=== PATIENT | male | born 1995 | race American Indian/Alaskan Native ===

== ENCOUNTER 2021-01-13 02:32 | Emergency (ER) | payer OTHER, SELFPAY ==
--- NOTE | 2021-01-13 03:03 | Event Note ---
ED Screening Note Date of service: 01/13/21 Time: 03:03 ED Screening Note: Patient complains of auditory hallucinations History of schizophrenia Denies SI/HI This initial assessment/diagnostic orders/clinical plan/treatment(s) is/are subject to change based on patients health status, clinical progression and re- assessment by fellow clinical providers in the ED. Further treatment and workup at subsequent clinical providers discretion. Patient/guardian urged not to elope from the ED as their condition may be serious if not clinically assessed and managed. Initial orders include: Labs Mental health evaluation
[2021-01-13 03:34] LABS: Bilirubin,Urine NEG (Negative); Blood,Urine NEG (Negative); Color,Urine Yellow (Yellow); Mucus,Urine FEW /HPF; Protein,Urine <15 mg/dL mg/dL (Negative); RBC,Urine < 1.0 /HPF (0.0-6.0); WBC,Urine < 1.0 /HPF (0.0-6.0)
[2021-01-13 03:41] LABS: Amphetamine Screen,Urine PRESUMPTIVE NEGATIVE; Benzodiazepines Screen,Urine PRESUMPTIVE NEGATIVE; Cannabinoid Screen,Urine PRESUMPTIVE POSITIVE; Cocaine Screen,Urine PRESUMPTIVE NEGATIVE; Methadone Screen,Urine PRESUMPTIVE NEGATIVE; Opiate Screen,Urine PRESUMPTIVE NEGATIVE
[2021-01-13 03:47] LABS: Basophils % (Auto) 0.3 % (0.0-1.8); Eosinophils # (Auto) 0.1 K/mm3 (0.0-0.4); Eosinophils % (Auto) 1.5 % (0.0-4.3); Hematocrit 48.4 % (35.5-45.6); Hemoglobin 16.9 gm/dl (11.8-15.2); Lymphocytes # (Auto) 2.7 K/mm3 (1.2-5.4); Lymphocytes % (Auto) 36.4 % (13.4-35.0); Mean Corpuscular HGB Conc 35 % (32-34); Mean Corpuscular Volume 96 fl (84-94); Monocytes # (Auto) 0.7 K/mm3 (0.0-0.8); Monocytes % (Auto) 9.6 % (0.0-7.3); Red Blood Count 5.06 M/mm3 (3.65-5.03); Red Cell Distribution Width 12.1 % (13.2-15.2)
[2021-01-13 04:02] LABS: Platelet Count 75 K/mm3 (140-440)
[2021-01-13 04:44] LABS: Alanine Aminotransferase 40 units/L (7-56); Albumin 4.6 g/dL (3.9-5); BUN/Creatinine Ratio 11; Blood Urea Nitrogen 11 mg/dL (9-20); Calcium 9.7 mg/dL (8.4-10.2); Hemolysis Index 28
--- NOTE | 2021-01-13 06:49 | Emergency Department Report ---
HPI - General Chief Complaint: Psych Time Seen by Provider: 01/13/21 03:01 - HPI HPI: 25-year-old -[place] male presents to the emergency department for a psychiatric evaluation secondary to auditory hallucinations. The patient has a history of schizophrenia for which he says he is compliant on 2 different medications. He is unable to describe the auditory hallucinations and essentially just sounds like some type of noise. They are not giving him any commands. He denies any visual hallucinations, suicidal or homicidal ideations. He denies any medical conditions. He denies any illicit drug use or alcohol abuse. Patient does say that he has a psychiatrist for outpatient follow-up but he has not seen them in "months." He has no physical complaints at this time. ED Past Medical Hx - Past Medical History Previous Medical History?: No - Social History Smoking Status: Current Every Day Smoker ED Review of Systems ROS: Stated complaint: MENTAL HEALTH Other details as noted in HPI Comment: All other systems reviewed and negative Constitutional: denies: chills, fever Respiratory: denies: cough, shortness of breath Cardiovascular: denies: chest pain, palpitations Gastrointestinal: denies: abdominal pain, vomiting Neurological: denies: headache, weakness Psychiatric: auditory hallucinations. denies: visual hallucinations, homicidal thoughts, suicidal thoughts Physical Exam - Physical Exam Vital Signs: Vital Signs 01/13/21 01/13/21 02:59 06:01 Temperature 98.8 F Pulse Rate 108 H Respiratory 20 20 Rate Blood Pressure 123/81 O2 Sat by Pulse 96 98 Oximetry Physical Exam: GENERAL: The patient is well-developed well-nourished. HENT: Normocephalic. Atraumatic. Patient has moist mucous membranes. EYES: Extraocular motions are intact. NECK: Supple. Trachea is midline. CHEST/LUNGS: Clear to auscultation. There is no respiratory distress noted. HEART/CARDIOVASCULAR: Regular. There is no tachycardia. There is no murmur. ABDOMEN: Abdomen is soft, nontender. Patient has normal bowel sounds. SKIN: Skin is warm and dry. NEURO: The patient is awake, alert, and oriented. The patient is cooperative. The patient has no focal neurologic deficits. Normal speech. MUSCULOSKELETAL: There is no tenderness or deformity. There is no limitation range of motion. ED Course Vital Signs 01/13/21 01/13/21 02:59 06:01 Temperature 98.8 F Pulse Rate 108 H Respiratory 20 20 Rate Blood Pressure 123/81 O2 Sat by Pulse 96 98 Oximetry ED Medical Decision Making - Lab Data Result diagrams: 01/13/21 03:25 01/13/21 03:25 Lab Results 01/13/21 01/13/21 01/13/21 Range/Units 03:25 03:25 03:25 WBC 7.3 (4.5-11.0) K/mm3 RBC 5.06 H (3.65-5.03) M/mm3 Hgb 16.9 H (11.8-15.2) gm/dl Hct 48.4 H (35.5-45.6) % MCV 96 H (84-94) fl MCH 33 H (28-32) pg MCHC 35 H (32-34) % RDW 12.1 L (13.2-15.2) % Plt Count 75 L (140-440) K/mm3 Lymph % (Auto) 36.4 H (13.4-35.0) % [place] % (Auto) 9.6 H (0.0-7.3) % Eos % (Auto) 1.5 (0.0-4.3) % Baso % (Auto) 0.3 (0.0-1.8) % Lymph # (Auto) 2.7 (1.2-5.4) K/mm3 [place] # (Auto) 0.7 (0.0-0.8) K/mm3 Eos # (Auto) 0.1 (0.0-0.4) K/mm3 Baso # (Auto) 0.0 (0.0-0.1) K/mm3 Seg Neutrophils % 52.2 (40.0-70.0) % Seg Neutrophils # 3.8 (1.8-7.7) K/mm3 Sodium (137-145) mmol/L Potassium (3.6-5.0) mmol/L Chloride (98-107) mmol/L Carbon Dioxide (22-30) mmol/L Anion Gap mmol/L BUN (9-20) mg/dL Creatinine (0.8-1.3) mg/dL Estimated GFR ml/min BUN/Creatinine Ratio % Glucose (75-100) mg/dL Calcium (8.4-10.2) mg/dL Total Bilirubin (0.1-1.2) mg/dL AST (5-40) units/L ALT (7-56) units/L Alkaline Phosphatase (35-129) units/L Total Protein (6.3-8.2) g/dL Albumin (3.9-5) g/dL Albumin/Globulin Ratio % Urine Color (Yellow) Urine Turbidity (Clear) Urine pH (5.0-7.0) Ur Specific [place] (1.003-1.030) Urine Protein (Negative) mg/dL Urine Glucose (UA) (Negative) mg/dL Urine Ketones (Negative) mg/dL Urine Blood (Negative) Urine Nitrite (Negative) Urine Bilirubin (Negative) Urine Urobilinogen (<2.0) mg/dL Ur Leukocyte Esterase (Negative) Urine WBC (Auto) (0.0-6.0) /HPF Urine RBC (Auto) (0.0-6.0) /HPF U Epithel Cells (Auto) (0-13.0) /HPF Urine Mucus /HPF Salicylates < 0.3 L (2.8-20.0) mg/dL Urine Opiates Screen Urine Methadone Screen Acetaminophen 5.0 L (10.0-30.0) ug/mL Ur Barbiturates Screen Ur Phencyclidine Scrn Ur Amphetamines Screen U Benzodiazepines Scrn Urine Cocaine Screen U Marijuana (THC) Screen Drugs of Abuse Note Plasma/Serum Alcohol (0-0.07) % Coronavirus (PCR) (Negative) 01/13/21 01/13/21 01/13/21 Range/Units 03:25 03:25 Unknown WBC (4.5-11.0) K/mm3 RBC (3.65-5.03) M/mm3 Hgb (11.8-15.2) gm/dl Hct (35.5-45.6) % MCV (84-94) fl MCH (28-32) pg MCHC (32-34) % RDW (13.2-15.2) % Plt Count (140-440) K/mm3 Lymph % (Auto) (13.4-35.0) % [place] % (Auto) (0.0-7.3) % Eos % (Auto) (0.0-4.3) % Baso % (Auto) (0.0-1.8) % Lymph # (Auto) (1.2-5.4) K/mm3 [place] # (Auto) (0.0-0.8) K/mm3 Eos # (Auto) (0.0-0.4) K/mm3 Baso # (Auto) (0.0-0.1) K/mm3 Seg Neutrophils % (40.0-70.0) % Seg Neutrophils # (1.8-7.7) K/mm3 Sodium 139 (137-145) mmol/L Potassium 4.5 (3.6-5.0) mmol/L Chloride 99.5 (98-107) mmol/L Carbon Dioxide 28 (22-30) mmol/L Anion Gap 16 mmol/L BUN 11 (9-20) mg/dL Creatinine 1.0 (0.8-1.3) mg/dL Estimated GFR > 60 ml/min BUN/Creatinine Ratio 11 % Glucose 96 (75-100) mg/dL Calcium 9.7 (8.4-10.2) mg/dL Total Bilirubin 0.50 (0.1-1.2) mg/dL AST 32 (5-40) units/L ALT 40 (7-56) units/L Alkaline Phosphatase 68 (35-129) units/L Total Protein 7.4 (6.3-8.2) g/dL Albumin 4.6 (3.9-5) g/dL Albumin/Globulin Ratio 1.6 % Urine Color Yellow (Yellow) Urine Turbidity Clear (Clear) Urine pH 7.0 (5.0-7.0) Ur Specific [place] 1.023 (1.003-1.030) Urine Protein <15 mg/dl (Negative) mg/dL Urine Glucose (UA) Neg (Negative) mg/dL Urine Ketones Neg (Negative) mg/dL Urine Blood Neg (Negative) Urine Nitrite Neg (Negative) Urine Bilirubin Neg (Negative) Urine Urobilinogen 2.0 (<2.0) mg/dL Ur Leukocyte Esterase Neg (Negative) Urine WBC (Auto) < 1.0 (0.0-6.0) /HPF Urine RBC (Auto) < 1.0 (0.0-6.0) /HPF U Epithel Cells (Auto) < 1.0 (0-13.0) /HPF Urine Mucus Few /HPF Salicylates (2.8-20.0) mg/dL Urine Opiates Screen Urine Methadone Screen Acetaminophen (10.0-30.0) ug/mL Ur Barbiturates Screen Ur Phencyclidine Scrn Ur Amphetamines Screen U Benzodiazepines Scrn Urine Cocaine Screen U Marijuana (THC) Screen Drugs of Abuse Note Plasma/Serum Alcohol < 0.01 (0-0.07) % Coronavirus (PCR) (Negative) 01/13/21 01/13/21 Range/Units Unknown Unknown WBC (4.5-11.0) K/mm3 RBC (3.65-5.03) M/mm3 Hgb (11.8-15.2) gm/dl Hct (35.5-45.6) % MCV (84-94) fl MCH (28-32) pg MCHC (32-34) % RDW (13.2-15.2) % Plt Count (140-440) K/mm3 Lymph % (Auto) (13.4-35.0) % [place] % (Auto) (0.0-7.3) % Eos % (Auto) (0.0-4.3) % Baso % (Auto) (0.0-1.8) % Lymph # (Auto) (1.2-5.4) K/mm3 [place] # (Auto) (0.0-0.8) K/mm3 Eos # (Auto) (0.0-0.4) K/mm3 Baso # (Auto) (0.0-0.1) K/mm3 Seg Neutrophils % (40.0-70.0) % Seg Neutrophils # (1.8-7.7) K/mm3 Sodium (137-145) mmol/L Potassium (3.6-5.0) mmol/L Chloride (98-107) mmol/L Carbon Dioxide (22-30) mmol/L Anion Gap mmol/L BUN (9-20) mg/dL Creatinine (0.8-1.3) mg/dL Estimated GFR ml/min BUN/Creatinine Ratio % Glucose (75-100) mg/dL Calcium (8.4-10.2) mg/dL Total Bilirubin (0.1-1.2) mg/dL AST (5-40) units/L ALT (7-56) units/L Alkaline Phosphatase (35-129) units/L Total Protein (6.3-8.2) g/dL Albumin (3.9-5) g/dL Albumin/Globulin Ratio % Urine Color (Yellow) Urine Turbidity (Clear) Urine pH (5.0-7.0) Ur Specific [place] (1.003-1.030) Urine Protein (Negative) mg/dL Urine Glucose (UA) (Negative) mg/dL Urine Ketones (Negative) mg/dL Urine Blood (Negative) Urine Nitrite (Negative) Urine Bilirubin (Negative) Urine Urobilinogen (<2.0) mg/dL Ur Leukocyte Esterase (Negative) Urine WBC (Auto) (0.0-6.0) /HPF Urine RBC (Auto) (0.0-6.0) /HPF U Epithel Cells (Auto) (0-13.0) /HPF Urine Mucus /HPF Salicylates (2.8-20.0) mg/dL Urine Opiates Screen Presumptive negative Urine Methadone Screen Presumptive negative Acetaminophen (10.0-30.0) ug/mL Ur Barbiturates Screen Presumptive negative Ur Phencyclidine Scrn Presumptive negative Ur Amphetamines Screen Presumptive negative U Benzodiazepines Scrn Presumptive negative Urine Cocaine Screen Presumptive negative U Marijuana (THC) Screen Presumptive positive Drugs of Abuse Note Disclamer Plasma/Serum Alcohol (0-0.07) % Coronavirus (PCR) Negative (Negative) - Medical Decision Making This patient, with a history of schizophrenia, presents with the complaint of auditory hallucinations. He denies any visual hallucinations, suicidal or homicidal ideations. At the time of my examination the patient is awake, oriented, calm and appropriate. Labs have been unremarkable including CBC, metabolic panel, blood alcohol level, urinalysis and UDS. Vital signs reassuring throughout his ED course. Patient does not appear to meet criteria to be made a 1013 or to require inpatient stabilization. He was seen by the psychiatric nurse practitioner who agrees that he is safe for outpatient psychiatric follow-up. Critical Care Time: No Critical care attestation.: If time is entered above; I have spent that time in minutes in the direct care of this critically ill patient, excluding procedure time. ED Disposition Clinical Impression: Auditory hallucinations Schizophrenia Qualifiers: Schizophrenia type: unspecified Qualified Code(s): F20.9 - Schizophrenia, unspecified Disposition: DC-01 TO HOME OR SELFCARE Is pt being admited?: No Condition: Stable Instructions: Schizophrenia, Managing Schizophrenia Additional Instructions: In case of an emergency, please contact the following numbers: [place] Crisis and Access Line: Number: Crisis Text Line: (Text START) Number: [phone] Suicide Prevention Line: Number: Emergency Number: 911 SUBSTANCE ABUSE PROGRAMS: [facility]: Location: [place], [place] [employer] Address: [address] [place] [address] [facility]: Address: [address] [place] [address] [facility]: Address: [address] [place] [address] [facility]: Address: [address] [place] [address] [facility] Address: [address] [place] [address]. Please contact above numbers to attempt placement into free based program. Medicaid Programs: [facility]: Address: [address] [place] [id number] [facility]: Address: [address] [place] [id number] Referrals: PRIMARY CAREMD [Primary Care Provider] - 2-3 Days [facility] [Outside] - 2-3 Days Time of Disposition: 13:04
--- NOTE | 2021-01-13 10:22 | Consultation ---
History of Present Illness - Reason for Consult Consult date: 01/13/21 Reason for consult: psychosis - History of Present Psychiatric Illness Per ED Note: 25-year-old -[place] male presents to the emergency department for a psychiatric evaluation secondary to auditory hallucinations. The patient has a history of schizophrenia for which he says he is compliant on 2 different medications. He is unable to describe the auditory hallucinations and essentially just sounds like some type of noise. They are not giving him any commands. He denies any visual hallucinations, suicidal or homicidal ideations. He denies any medical conditions. He denies any illicit drug use or alcohol abuse. Patient does say that he has a psychiatrist for outpatient follow-up but he has not seen them in "months." He has no physical complaints at this time. The patient was seen today, he is a/o x 3. He is calm and cooperative. he states he was hearing voices when he came in. He says the voices was "making some type of noise." The patient says he was "smoking weed." The patient denies hearing voices at present. He says "I don't hear them now. I actually feel a lot better." He also denies any S/HI or ever feeling this way. The patient says he has a history of schizophrenia and has been taking his meds. He says he hasn't seen his outpatient provider in a few months. PAST PSYCHIATRIC HISTORY Diagnoses: Schizophrenia Suicide attempts or Self-harm behavior: 6 times Prior psychiatric hospitalizations: Yes Substance Abuse history: "weed" Previous psychiatric medications tried: gabapentin and "qusintine" Outpatient treatment: yes PAST MEDICAL HISTORY: Asthma Family Psychiatric History: None reported or documented SOCIAL HISTORY Marital Status: Single Living Arrangements: with family Employment Status: Unemployed Access to guns/weapons: None report Education: 11th grade History of Abuse: Denies Legal History: None reported REVIEW OF SYSTEMS Constitutional: Negative for weight loss ENT: Negative for stridor Respiratory: Negative for cough or hemoptysis All other systems reviewed and are negative MENTAL STATUS EXAMINATION General Appearance and Behavior: Age appropriate, good hygiene, wearing appropriate clothes, good eye contact, calm and cooperative Cooperation: Participating/engaged, but Guarded Psychomotor Behavior: Psychomotor normal Mood: a lot better Affect and affective range: Euthymic Thought Process: Goal directed Thought Content: Denies Speech: Normal rate, volume and rhythm Intellectual Functioning: Average Suicidal Ideation: Denies Homicidal Ideation: Denies Impulse Control: Unimpaired Insight and Judgment: Limited insight and judgment Memory: Normal Attention: Normal Orientation: Alert, oriented Assessment and Plan (1) Schizophrenia Current Visit: Yes Status: Acute Treatment Plan Continue home medications Risks, benefits and alternatives of medications discussed with the patient, questions answered and consent obtained from patient. PSYCHOTHERAPY: Supportive psychotherapy provided MEDICAL: Per primary team DELIRIUM PRECAUTIONS: Please re-orient patient frequently, keep lights on during the day, and minimize benzodiazepines and opiates as these medications could worsen patient's confusion. 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 The patient is to follow up with outpatient psychiatry in 7 to 14 days upon discharge The cut off saw operator metal is to give the patient outpatient resources Will sign off. Thank you for the consult. Please contact with any questions and /or concerns. Case discussed with Dr. Lee who agrees with current disposition Medications and Allergies Allergies Allergy/AdvReac Type Severity Reaction Status Date / Time No Known Allergies Allergy Unverified 01/13/21 03:00 Mental Status Exam - Vital signs Last Vital Signs Temp 98.8 F 01/13/21 02:59 Pulse 108 H 01/13/21 02:59 Resp 20 01/13/21 06:01 BP 123/81 01/13/21 02:59 Pulse Ox 98 01/13/21 06:01 Results Result Diagrams: 01/13/21 03:25 01/13/21 03:25 Abnormal lab results 01/13/21 01/13/21 01/13/21 Range/Units 03:25 03:25 03:25 RBC 5.06 H (3.65-5.03) M/mm3 Hgb 16.9 H (11.8-15.2) gm/dl Hct 48.4 H (35.5-45.6) % MCV 96 H (84-94) fl MCH 33 H (28-32) pg MCHC 35 H (32-34) % RDW 12.1 L (13.2-15.2) % Plt Count 75 L (140-440) K/mm3 Lymph % (Auto) 36.4 H (13.4-35.0) % [place] % (Auto) 9.6 H (0.0-7.3) % Salicylates < 0.3 L (2.8-20.0) mg/dL Acetaminophen 5.0 L (10.0-30.0) ug/mL All other labs normal.
[2021-01-13 10:37] VITALS: BP 118/71
== END 2021-01-13 13:32 | disposition home or self-care (01) ==
LOC: ED 02:32
DX: F20.9 Schizophrenia, unspecified (principal); F17.200 Nicotine dependence, unspecified, uncomplicated; Z20.822 Contact with and (suspected) exposure to COVID-19; Z79.899 Other long term (current) drug therapy
CPT/HCPCS: 36415; 80053; 80307; 81001; 85025; 99284; U0003; 80320; G0480